=== PATIENT | female | born 1945 | race Caucasian/White ===

== ENCOUNTER → 2024-05-04 10:26 | Outpatient (REF) | payer MEDICARE, SELFPAY | LOC: WDC 10:26 | PROVIDERS: ATTENDING PHYSICIAN Family Medicine | DX: Z12.31 Encounter for screening mammogram for malignant neoplasm of breast (principal) | CPT/HCPCS: 77063; 77067 ==

== ENCOUNTER → 2025-05-10 10:21 | Outpatient (REF) | payer MEDICARE, SELFPAY | LOC: WDC 10:21 | PROVIDERS: ATTENDING PHYSICIAN Family Medicine | DX: Z12.31 Encounter for screening mammogram for malignant neoplasm of breast (principal) | CPT/HCPCS: 77063; 77067 ==